=== PATIENT | female | born 1965 | race Two or more races ===

== ENCOUNTER 2020-05-30 21:13 | Emergency (ER) | payer BC ==
[~2020-05-30] VITALS: Ht 165.1 cm; Wt 73.0 kg
[2020-05-30 22:44] LABS: CHLORIDE 109 mEq/L (98-107)
[2020-05-30 22:48] LABS: BASOPHILS % 0.9 % (0.0-2.0); EOSINOPHILS % 1.3 % (0.0-5.0); HEMATOCRIT. 36.6 % (36.0-48.0); HEMOGLOBIN. 12.3 g/dL (12.0-16.0); LYMPHOCYTES % 23.6 % (20.0-50.0); MEAN CORPUSCULAR HEMOGLOBIN 28.7 pg (28.0-32.0); MEAN CORPUSCULAR VOLUME 85.1 fL (81.0-99.0); MEAN PLATELET VOLUME 9.4 fl (7.4-10.4); MONOCYTES % 8.3 % (2.0-8.0); NEUTROPHILS % 65.9 % (40.0-76.0); PLATELET 277 x1000/uL (130-400); RED CELL DISTRIBUTION WIDTH 13.2 % (11.6-14.6)
[2020-05-31 02:23] VITALS: BP 120/53
== END 2020-05-31 02:28 | disposition home or self-care (01) ==
LOC: ER 21:13
DX: R07.9 Chest pain, unspecified (principal)
CPT/HCPCS: 36415; 71045; 80053; 84484; 85025; 93005; 99285